=== PATIENT | female | born 1945 | race Asian ===

== ENCOUNTER 2019-07-16 11:54 | Emergency (ER) | payer MEDICARE, OTHER ==
[~2019-07-16] VITALS: Ht 149.9 cm; Wt 50.8 kg
[2019-07-16 13:21] VITALS: BP 126/98
[2019-07-16] MEDS ORDERED: ACETAMINOPHEN 325 MG TAB PO ONE (13:45)
== END 2019-07-16 14:09 | disposition home or self-care (01) ==
LOC: ER 11:54
DX: S16.1XXA Strain of muscle, fascia and tendon at neck level, initial encounter (principal); E11.9 Type 2 diabetes mellitus without complications; I10 Essential (primary) hypertension; Z88.0 Allergy status to penicillin; V43.62XA Car passenger injured in collision with other type car in traffic accident, initial encounter; Y93.89 Activity, other specified; Y92.488 Other paved roadways as the place of occurrence of the external cause; Y99.8 Other external cause status
CPT/HCPCS: 72040

== ENCOUNTER 2020-04-20 10:57 | Inpatient (IN) | payer OTHER ==
[~2020-04-20] VITALS: Ht 152.4 cm; Wt 49.6 kg
[2020-04-20] MEDS ORDERED: methylPREDNISolone SOD SUCC 125 MG/2 ML VL ONE (11:26)
[2020-04-20] MEDS ORDERED: methylPREDNISolone SOD SUCC 125 MG/2 ML VL IV ONE (11:30)
[2020-04-20 12:03] LABS: Basophils # (auto) 0 10 ^3/uL (0-0.2); Basophils % (auto) 0.1 % (0.0-2.0); Eosinophils # (auto) 0 10 ^3/uL (0-0.8); Hematocrit 39.1 % (36.0-46.0); Hemoglobin 12.9 g/dL (12.2-16.2); Lymphocytes # (auto) 1.7 10 ^3/uL (0.4-5.4); Lymphocytes % (auto) 13.1 % (10.0-50.0); Mean Corpuscular Hemoglobin 29.5 pg (28.0-32.0); Mean Corpuscular Volume 89.5 fL (80.0-100.0); Monocytes # (auto) 1.2 10 ^3/uL (0-1.3); Neutrophils # (auto) 10.2 10 ^3/uL (1.6-8.6); Neutrophils % (auto) 77.8 % (37.0-80.0); Nucleated Red Blood Cells % 0.7 %; Platelet Count (auto) 317 10^3/uL (140-450); Red Blood Cells 4.36 10^6/uL (4.0-5.20); Red Cell Distribution Width 14.5 % (11.8-14.3)
[2020-04-20 12:16] LABS: Lactic Acid w/Reflex 11.4 mmol/L (0.4-2.0)
[2020-04-20 12:58] LABS: INR 1.15 (0.9-1.15); Partial Thromboplastin Time 25.1 sec (23.0-31.2)
[2020-04-20 13:19] LABS: Urine Bacteria NONE SEEN /hpf (None Seen); Urine Blood 2+ /uL (Negative); Urine Hyaline Cast FEW /lpf (0 - 2); Urine Mucus FEW (None Seen); Urine Specific Gravity 1.021 (1.001-1.035); Urine WBC 1 /hpf (0 - 5)
[2020-04-20] MEDS ORDERED: cefTRIAXone 1GM/50ML D5W 50 ML IV ONE ×2 (14:52→15:00)
[2020-04-20] MEDS ORDERED: VANCOMYCIN 1GM/250ML 250 ML IV ONE ×2 (14:52→15:00)
[2020-04-20] MEDS ORDERED: SODIUM CHLORIDE 0.9% 1,650 ML IV ONE (15:00)
[2020-04-20] MEDS ORDERED: SODIUM CHLORIDE 0.9% 1,000 ML IV ONE (15:00)
[2020-04-20 16:22] LABS: Albumin 2.7 g/dL (3.4-5.0); Calcium 8.2 mg/dL (8.5-10.1); Magnesium 1.7 mg/dL (1.6-2.6); Potassium 3.1 mmol/L (3.5-5.1)
[2020-04-20 16:27] LABS: BUN/Creatinine Ratio 17.6; Bilirubin, Total 0.8 mg/dL (0.2-1.0); Total Protein 7.7 g/dL (6.4-8.2)
[2020-04-20] MEDS ORDERED: ASPirin 81 mg TAB PO ONE (17:00)
[2020-04-20] MEDS ORDERED: NITROGLYCERIN 0.4 MG SL TAB SL PRN (19:00)
[2020-04-20] MEDS ORDERED: MORPHINE SULF INJ 2 MG/ML SYRINGE 1ML IV PRN (19:00)
[2020-04-20 20:58] LABS: White Blood Cell 8.6 10^3/uL (4.4-10.8)
[2020-04-20 20:59] LABS: Hematocrit 35.4 % (36.0-46.0); Hemoglobin 11.5 g/dL (12.2-16.2); Mean Corpuscular Hemoglobin 28.5 pg (28.0-32.0); Mean Corpuscular Hgb Conc. 32.5 g/dL (32.0-36.0); Mean Corpuscular Volume 87.6 fL (80.0-100.0); Platelet Count (auto) 180 10^3/uL (140-450); Red Blood Cells 4.05 10^6/uL (4.0-5.20)
[2020-04-20 21:00] LABS: Band Neutrophils % (manual) 0; Basophils % (manual) 0 (0.0-2.0); Eosinophils % (manual) 0 (0-7); Metamyelocytes % 0; Myelocytes % 0; Promyelocytes % 0; Reactive Lymphocytes 0
[2020-04-20 21:01] LABS: Blast Cells 0
--- NOTE | 2020-04-20 21:05 | NUR ---
AT BEDSIDE IN ER BED 4. PER EDD CHURCH, NEW ORDERS RECEIVED BY MD BECKY ISBELL, TO ATTEMPT TO PLACE PT ON ANY O2 MODALITY ABLE TOLERATE SATS OF ABOVE 92%. PT PLACED ON 10LPM OXYMIZER POX 93% WILL TITRATE TOLERABLE. RN AWARE OF O2 CHANGE WILL CONTINUE TO MONITOR. WAS AT BEDSIDE IN FULL PPE DUE TO COVID ISOLATION PRECAUTIONS.
[2020-04-20] MEDS ORDERED: HEPARIN SODIUM (PORCINE) 5000 UNITS/ML 1ML VIAL IV ONE (21:30)
[2020-04-20 22:10] VITALS: BP 156/94
--- NOTE | 2020-04-20 22:10 | NUR ---
Telemetry admit from DELANEY MARADIAGA admitted to Telemetry unit. Patient oriented to MARIBEL ORTEGA, primary RN, unit, room, bed, call light, and unit policies regarding patient care and visiting hours. Patient now on continuous telemetry monitoring, tele box # 13. Patient is alert and oriented x4. Patient denies pain at this time. Patient reports shortness of breath with exertion. Patient is on 10L/min Oxymizer, SPO2: 94% at this time. No sign/symptoms of distress noted or verbalized at this time. Instructed on plan of care and encouraged patient to call for assistance as needed, patient verbalized understanding. Bed is locked in lowest position, side rails x 2 are up, and call light is within reach.
[2020-04-20 22:17] LABS: Lymphocytes % (manual) 7 (10.0-50.0); Monocytes % (manual) 8 (0-12)
[2020-04-20] MEDS: ASCORBIC ACID 500 MG TAB PO SCH (22:57)
[2020-04-20] MEDS: ACETAMINOPHEN 325 MG TAB PO PRN (22:57)
[2020-04-21] VITALS (19 sets, daily range): BP systolic 130–167; BP diastolic 78–102
--- NOTE | 2020-04-21 00:34 | NUR ---
Critical Lab Value Dr. Mary is covering for Dr. Perales. Dr. Mary made aware of patient's critical troponin lab value: 1.430. Dr. Mary aware that patient has an order for a heparin drip and heparin bolus. Dr. Mary also made aware of patient's blood pressure 158/95 and heart rate 92. Orders received for Lisinopril 40mg PO x1 now. Orders read back and verified. Will carry out orders as received.
[2020-04-21] MEDS ORDERED: LISINOPRIL 20 MG TAB PO ONE (00:45)
[2020-04-21] MEDS: HEPARIN DRIP/D5W 100UNITS/ML 250 ML IV SCH ×2 (00:48→00:50)
[2020-04-21] MEDS: HYDROcodone-ACET 5/325MG TAB PO PRN (01:00)
[2020-04-21] MEDS ORDERED: PANT40TA2 PO (02:03)
[2020-04-21] MEDS ORDERED: LOVA40TA72 PO (02:04)
[2020-04-21] MEDS ORDERED: CYAN-17 PO (02:04)
[2020-04-21] MEDS ORDERED: LISI-646 PO (02:04)
[2020-04-21] MEDS ORDERED: METF-929 PO (02:04)
[2020-04-21] MEDS ORDERED: ALLO100T PO (02:04)
--- NOTE | 2020-04-21 04:58 | NUR ---
AT BEDSIDE ATTEMPTED TO TITRATED TO 9LPM VIA OXYMIZER, POX 92-93%, RN MARIBEL COMMUNICATED ON O2 CHANGE.
--- NOTE | 2020-04-21 06:00 | NUR ---
HOME MEDICATIONS Home medications collected and placed in [place] [address] medication room. POM wristband placed on patient.
--- NOTE | 2020-04-21 07:21 | NUR ---
Called Lab RE: APTT Spoke with Pippa from lab regarding time sensitive APTT blood draw due at 07:00. Per pippa "I just received all the blood."
--- NOTE | 2020-04-21 07:50 | NUR ---
Shift change Patient desaturating on 11L Oxymizer. BP 153/97, HR 97, RR 24, O2 85% on 11 L Oxymizer. Call placed to Garth Michael and asked for recommendations. Recommendations made to put patient on simple mask. Patient placed on simple mask, oxygen levels increased to 96%, patient tolerating well and verbalized "feeling better". Verified rate of heparin drip with ALEXANDRE RN. Still awaiting PTT results to adjust rate. Patient remains of continuous heart and oxygen monitor. Will continue to monitor closely.
[2020-04-21 07:58] LABS: Basophils # (auto) 0 10 ^3/uL (0-0.2); Basophils % (auto) 0.2 % (0.0-2.0); Eosinophils # (auto) 0 10 ^3/uL (0-0.8); Hematocrit 35.7 % (36.0-46.0); Hemoglobin 11.4 g/dL (12.2-16.2); Lymphocytes # (auto) 0.9 10 ^3/uL (0.4-5.4); Lymphocytes % (auto) 10.4 % (10.0-50.0); Mean Corpuscular Hemoglobin 28.7 pg (28.0-32.0); Mean Corpuscular Hgb Conc. 32.1 g/dL (32.0-36.0); Mean Corpuscular Volume 89.3 fL (80.0-100.0); Monocytes # (auto) 1.2 10 ^3/uL (0-1.3); Monocytes % (auto) 13.9 % (0.0-12.0); Neutrophils # (auto) 6.4 10 ^3/uL (1.6-8.6); Neutrophils % (auto) 75.5 % (37.0-80.0); Nucleated Red Blood Cells % 0.6 %; Platelet Count (auto) 207 10^3/uL (140-450); Red Blood Cells 3.99 10^6/uL (4.0-5.20); Red Cell Distribution Width 14.2 % (11.8-14.3); White Blood Cell 8.5 10^3/uL (4.4-10.8)
[2020-04-21 08:23] LABS: INR 1.21 (0.9-1.15); Partial Thromboplastin Time 42.6 sec (23.0-31.2)
[2020-04-21 08:33] LABS: Potassium 3.2 mmol/L (3.5-5.1)
[2020-04-21 08:44] LABS: BUN/Creatinine Ratio 21.8; Calcium 8.7 mg/dL (8.5-10.1)
--- NOTE | 2020-04-21 08:44 | NUR ---
Spoke with Dr Greenwood and updated on patient status. Discussed oxygen levels, chest pain, medication and vital signs. EKG's fax to Doctor for review. Patient denies any chest pain at this time, resting comfortably in bed. In locked and lowest position, call light in reach.
[2020-04-21] MEDS ORDERED: CLOPIDOGREL 300 MG TAB PO ONE (08:45)
--- NOTE | 2020-04-21 08:49 | NUR ---
HEPARIN Received call from pharmacy ""[facility]". Instructed to increase dose rate r/t PTT results of 42.6. Heparin now infusing at 8.5ml per hour. Next PTT at 15:00.
[2020-04-21] MEDS ORDERED: POTASSIUM CHL 20 Meq TABLET PO ONE ×2 (09:15→15:00)
[2020-04-21] MEDS ORDERED: SPIRONOLACTONE 25 MG TAB PO ONE (09:15)
[2020-04-21] MEDS ORDERED: FUROSEMIDE 40 MG/4 ML VIAL IV ONE (09:15)
[2020-04-21] MEDS ORDERED: AZITHROMYCIN 500MG/ 250ML 250 ML IV SCH (10:00)
[2020-04-21] MEDS: ASCORBIC ACID 500 MG TAB PO SCH ×2 (10:00→22:00)
--- NOTE | 2020-04-21 10:00 | NUR ---
PULMONOLOGY Dr Lorne arreola for pulmonology consult, updated on patient.
[2020-04-21] MEDS: DexAMETHasone SOD PHOS 10MG/1ML VIAL INJ IV SCH (10:25)
[2020-04-21] MEDS: ASPirin 81 mg TAB PO SCH (10:26)
[2020-04-21] MEDS: NITROGLYCERIN 0.2MG/HR TOPICAL PATCH TD SCH (10:27)
[2020-04-21] MEDS: levoFLOXacin 500MG 100 ML IV SCH (10:27)
[2020-04-21] MEDS: ZINC SULFATE 220mg CAP or TAB PO SCH (10:27)
[2020-04-21] MEDS: LISINOPRIL 10 MG TAB PO SCH (10:27)
[2020-04-21] MEDS: CHOLECALCIFEROL (VITD3) 2,000 UNIT CAP PO SCH (10:27)
--- NOTE | 2020-04-21 12:36 | NUR ---
TRANSFER Patient continually desaturating, requiring 15 L via mask to maintain O2 at 93%. Patient unable to tolerate sitting on bedpan, voiding large amounts of urine after diuretics administered. R.T. paged to room. Patient placed in prone position, tolerating well. Oxygen levels rise and patient feels relief in prone position. 16 F urinary catheter placed after one attempt, patient tolerated well. Patient remains on continuous tele monitor and oxygen monitor.
--- NOTE | 2020-04-21 12:45 | NUR ---
CXR COMPLETED AT BEDSIDE. CALL PLACED TO DOCTOR ISMAL TO MAKE RECOMMENDATIONS FOR CHEST CT.
--- NOTE | 2020-04-21 13:30 | NUR ---
SPOKE TO Garth FRANCIS - STATES PATIENT NOT STABLE FOR TRANSFER TO [facility] DEPT FOR CT CHEST PATIENT UNABLE TO LIE FLAT DUE TO SOB.
--- NOTE | 2020-04-21 13:45 | NUR ---
ROUNDS Oxygen levels maintaining 95% or greater after proning position.
--- NOTE | 2020-04-21 13:52 | NUR ---
REPORT RECEIVED FROM BARRY PUGA FROM [facility] [employer]. PATIENT TO GO TO ROOM 112 WHEN BED IS READY.
[2020-04-21] MEDS ORDERED: DEXTROSE (50%) 50ML SYRG IV PRN (14:00)
[2020-04-21] MEDS ORDERED: ONDANSETRON HCL 4 MG/2 ML VIAL IV PRN (14:00)
--- NOTE | 2020-04-21 14:15 | NUR ---
Report called to Sol PUGA in ICU. Bed not ready at this time. Will transfer once bed ready.
[2020-04-21 15:16] LABS: INR 1.22 (0.9-1.15); Partial Thromboplastin Time 43.3 sec (23.0-31.2)
--- NOTE | 2020-04-21 15:43 | NUR ---
HEPARIN Spoke with pharmacist, PTT 43.3 order to increase rate by 2ml/hr, now infusing at 10.5ml/hr. Next PTT at 21:30.
--- NOTE | 2020-04-21 15:50 | NUR ---
Respiratory note: CALLED 'S OFFICE TO CONSULT ABOUT PUTTING PT ON HIGH FLOW NASAL CANNULA. NOT REACH BUT WILL BE PAGED.
--- NOTE | 2020-04-21 16:00 | NUR ---
PATIENT TRANSFER PATIENT ARRIVED TO ICU VIA BED CONNECTED TO TELEMETRY BOX AND OXYGEN. PATIENT CURRENTLY ON 15L NONREBREATHER SATURATIONS 100%. PATIENT IS ANXIOUS AND RESTLESS. MORALES DRAINING CLEAR YELLOW URINE BUT IS LEAKING, WILL ADJUST AND REASSESS. PATIENT PLACED ON BEDSIDE MONITOR. CALL LIGHT IN REACH, BED IN LOW POSITION. WILL CONTINUE TO MONITOR RESPIRATORY STATUS. PATIENT INSTRUCTED TO CALL FOR ASSISTANCE WHEN NEEDED.
[2020-04-21] MEDS ORDERED: REMDESIVIR 200 MG in NS 210ml LOADING DOSE ADULT IV ONE (17:00)
[2020-04-21] MEDS: ACCU-CHEK COMFORT CURVE STRIP VI SCH ×2 (17:06→22:00)
[2020-04-21] MEDS: InsuLIN REG 1unit/0.01ml Soln (100units/ml) SC SCH ×2 (17:07→22:00)
--- NOTE | 2020-04-21 17:30 | NUR ---
PATIENT PLACED ON 10L OXYMIZER, SATURATIONS 93-94%. WILL CONTINUE TO MONITOR.
--- NOTE | 2020-04-21 18:25 | NUR ---
SPOKE TO DR PENA TO IN FORM OF PATIENT BEING VERY ANXIOUS. PER MD START PATIENT ON ATIVAN IVP 0.5MG Q6PRN. ALL ORDERS NOTED IN CHART.
--- NOTE | 2020-04-21 18:30 | NUR ---
PICC LINE NURSE AT BEDSIDE TO PLACE MIDLINE
--- NOTE | 2020-04-21 18:34 | NUR ---
PT CURRENTLY WEARING A 12L OXYMIZER. SPO2 90%, HR 92, RR 17. BIPAP AT BEDSIDE. NO RESPIRATORY DISTRESS NOTED. WILL CONTINUE TO MONITOR PT.
[2020-04-21] MEDS: LORazepam 2MG/ML-1ML VIAL IV PRN (19:00)
--- NOTE | 2020-04-21 19:19 | NUR ---
Midline Placement: Patient educated on need for midline placement. All risks and benefits explained and all questions and concerns addresses prior to procedure. 4Fr 20cm midline inserted via left basilic vein using Ultrasound. Sterile technique utilized. Blood return obtained from th single lumen and flushed easily with NS using proper technique. Midline secured with saline lock; biodisc and occlusive dressing applied. Primary RN notified. Midline lot #[id number]. internal length 20cm external length 0cm
--- NOTE | 2020-04-21 20:00 | NUR ---
PATIENT ADMITTED ON 04/20/2020. PROGRESSIVE DYSPNEA AND COUGH FOR 4 WEEKS. MD DIAGNOSIS: COVID PNA AND NSTEMI. LAST TROPONIN WAS 2.04. DENIES CHEST PAIN, NAUSEA, DYSPNEA OR DIAPHORESIS. GONZALEZ WELL. LUNGS CLEAR. ON 10L OXYMIZER. ALL PULSES PALPABLE. ABDOMEN ROUND AND SOFT. HAS 2 PERIPHERAL IVS AND A DELFINO MIDLINE THAT WAS JUST PLACED. PATIENT ARRIVED HERE FROM THE COVID UNIT THIS AFTERNOON. HEPARIN DRIP AT 1050 UNITS/HOUR. MORALES IN PLACE DRAINING CLEAR YELLOW LIQUID TO DOWN DRAIN BAG. ORDER FOR CT OF THE CHEST. NO SKIN ISSUES. DIET: CARDIAC DIET. NO APPETITE.
--- NOTE | 2020-04-21 20:15 | NUR ---
LOOKED IN THE ROOM AND SAW A BLOODY PILLOW CASE. ENTERING THE ROOM, THE NEW MIDLINE WAS SECURE, BUT IT HAD BLED FROM THE INSERTION SITE. REMOVED THE OLD DRESSING AND STABILIZATION DEVICE. CLEANED SITE AND APPLIED NEW STABILIZATION DEVICE AND DRESSING. TOOK 30 MINUTES TO CLEAN AND DRESS. BLOOD WAS EVERYWHERE.
--- NOTE | 2020-04-21 20:48 | NUR ---
PTPTT AND POTASSIUM SENT.
--- NOTE | 2020-04-21 20:49 | NUR ---
PULSE OX ON BEDSIDE MONITOR NOT WORKING. TRYING TO LOCATE A NEW CABLE. PORTABLE PULSE OX MACHINE DELIVERED FROM RT DEPARTMENT. PLACED IT IN ROOM AND ATTACHED IT TO PATIENT PROBE. CURRENTLY 100% SATURATION.
[2020-04-21 21:26] LABS: INR 1.28 (0.9-1.15); Partial Thromboplastin Time 60.9 sec (23.0-31.2)
[2020-04-21] MEDS: INSULIN LANTUS (GLARGINE) 1 /0.01ml (100units/ml) SC SCH (22:00)
--- NOTE | 2020-04-21 22:00 | NUR ---
NEW MIDLINE SITE HAS OOZED A LITTLE BLOOD. PATIENT IS RESTING.
--- NOTE | 2020-04-21 23:31 | NUR ---
WAKES UP READILY. MIDLINE SITE HAS SOME MORE OOZING. PRESSURE DRESSING APPLIED.
[2020-04-22] VITALS (17 sets, daily range): BP systolic 126–174; BP diastolic 73–102
--- NOTE | 2020-04-22 | NUR ---
COMPLETE LINEN CHANGE
[2020-04-22] MEDS: LORazepam 2MG/ML-1ML VIAL IV PRN ×4 (00:30→20:48)
--- NOTE | 2020-04-22 00:30 | NUR ---
VSS . NSR WITHOUT ECTOPY. 10 L OXYMIZER. NO DYSPNEA. ANXIOUS. ATIVAN GIVEN. DOES NOT LIKE MORALES. HAD A BLADDER SPASM AND LEAKED A LITTLE URINE ONTO THE PAD. COMPLETE LINEN CHANGE AND HORTENCIA CARE. O2 SAT 97%.
[2020-04-22 03:30] LABS: INR 1.26 (0.9-1.15)
[2020-04-22 03:33] LABS: Partial Thromboplastin Time 74.8 sec (23.0-31.2)
[2020-04-22] MEDS: HYDROcodone-ACET 5/325MG TAB PO PRN ×2 (04:22→22:31)
--- NOTE | 2020-04-22 05:00 | NUR ---
AM LABS SENT.
[2020-04-22 05:19] LABS: Basophils # (auto) 0 10 ^3/uL (0-0.2); Basophils % (auto) 0.1 % (0.0-2.0); Eosinophils # (auto) 0 10 ^3/uL (0-0.8); Hematocrit 34.6 % (36.0-46.0); Hemoglobin 11.3 g/dL (12.2-16.2); Lymphocytes # (auto) 1.1 10 ^3/uL (0.4-5.4); Lymphocytes % (auto) 11.3 % (10.0-50.0); Mean Corpuscular Hemoglobin 28.8 pg (28.0-32.0); Mean Corpuscular Hgb Conc. 32.6 g/dL (32.0-36.0); Mean Corpuscular Volume 88.6 fL (80.0-100.0); Monocytes # (auto) 1.2 10 ^3/uL (0-1.3); Monocytes % (auto) 12.1 % (0.0-12.0); Neutrophils # (auto) 7.7 10 ^3/uL (1.6-8.6); Neutrophils % (auto) 76.5 % (37.0-80.0); Nucleated Red Blood Cells % 0.1 %; Platelet Count (auto) 234 10^3/uL (140-450); Red Cell Distribution Width 14.3 % (11.8-14.3); White Blood Cell 10.1 10^3/uL (4.4-10.8)
--- NOTE | 2020-04-22 05:22 | NUR ---
REPOSITIONED. DESATURATED. NRB ON BRIEFLY. SWITCHED BACK TO OXYMIZER 10L.
[2020-04-22 05:35] LABS: Albumin 2.7 g/dL (3.4-5.0); BUN/Creatinine Ratio 28.2; Calcium 8.5 mg/dL (8.5-10.1); Potassium 3.4 mmol/L (3.5-5.1)
[2020-04-22 05:38] LABS: Bilirubin, Total 0.6 mg/dL (0.2-1.0); Total Protein 7.3 g/dL (6.4-8.2)
[2020-04-22] MEDS: InsuLIN REG 1unit/0.01ml Soln (100units/ml) SC SCH ×4 (06:45→22:00)
[2020-04-22] MEDS: ACCU-CHEK COMFORT CURVE STRIP VI SCH ×4 (06:46→22:07)
[2020-04-22] MEDS: CLOPIDOGREL BISULFATE 75 MG TAB PO SCH (07:29)
--- NOTE | 2020-04-22 08:50 | NUR ---
OXYGENATION INCREASED O2 ON OXYMIZER TO 15L, R.T. NOTIFIED. CONTINUE CARE. SATS DECREASED DOWN TO 84% WITH EXERTION.
--- NOTE | 2020-04-22 09:00 | NUR ---
FAMILY CALLED PASSWORD VERIFIED. UPDATED FAMILY ON PT'S CURRENT STATUS AND POC FOR TODAY. CONTINUE CARE.
[2020-04-22] MEDS: ZINC SULFATE 220mg CAP or TAB PO SCH (10:02)
[2020-04-22] MEDS: DexAMETHasone SOD PHOS 10MG/1ML VIAL INJ IV SCH (10:02)
[2020-04-22] MEDS: ASCORBIC ACID 500 MG TAB PO SCH ×2 (10:02→22:07)
[2020-04-22] MEDS: CHOLECALCIFEROL (VITD3) 2,000 UNIT CAP PO SCH (10:02)
[2020-04-22] MEDS: levoFLOXacin 500MG 100 ML IV SCH (10:02)
[2020-04-22] MEDS: ASPirin 81 mg TAB PO SCH (10:02)
[2020-04-22] MEDS: LISINOPRIL 10 MG TAB PO SCH (10:03)
[2020-04-22] MEDS: NITROGLYCERIN 0.2MG/HR TOPICAL PATCH TD SCH (10:03)
[2020-04-22 10:35] LABS: INR 1.24 (0.9-1.15)
[2020-04-22 10:42] LABS: Partial Thromboplastin Time 84.1 sec (23.0-31.2)
--- NOTE | 2020-04-22 10:45 | NUR ---
DR. PENA AT BEDSIDE: HEAVEN STATUS MD UPDATED ON PT'S CURRENT STATUS, LABS AND POC FOR TODAY. INFORMED MD THAT PATIENT IS CURRENTLY ON 15L OXYMIZER AT THIS TIME. INFORMED MD THAT WITH RESTLESSNESS AND EXERTION FROM PATIENT, SATS DECREASED DOWN TO 84%. HOLD CT FOR TODAY AT THIS TIME. ATTEMPT TOMORROW. MD WANTING TO KEEP PATIENT HEAVEN STATUS AT THIS TIME DUE TO POOR RESPIRATORY STATUS. CONTINUE CARE. WILL CARRIED OUT OTHER ORDERS GIVEN.
--- NOTE | 2020-04-22 10:55 | NUR ---
HEPARIN GTT TITRATE PER PROTOCOL. CURRENT PTT LEVEL IS 84.1. DECREASE HEPARIN GTT TO 850 UNITS/HR, OR 8.5 ML/HR. WILL CONTINUE TO MONITOR. PLAVIX HELD FOR TODAY.
[2020-04-22] MEDS: ALPRAZolam 0.25 MG TAB PO PRN (12:39)
[2020-04-22] MEDS: REMDESIVIR 100mg in NS 230ml DAILYx4DAYS (NO VENT) IV SCH (17:11)
[2020-04-22 17:52] LABS: INR 1.54 (0.9-1.15)
[2020-04-22 18:07] LABS: Partial Thromboplastin Time 76.2 sec (23.0-31.2)
--- NOTE | 2020-04-22 18:10 | NUR ---
HEPARIN GTT DECREASED PER PROTOCOL. CURRENT PTT 76.2. DECREASED HEPARIN GTT PER PROTOCOL TO 650 UNITS/HR, 6.5 ML/HR. WILL CONTINUE TO MONITOR.
[2020-04-22] MEDS: HEPARIN DRIP/D5W 100UNITS/ML 250 ML IV SCH (20:00)
--- NOTE | 2020-04-22 20:10 | NUR ---
TOOK OXYGEN OFF. ENTERED ROOM. SHE IS ORIENTED AND HAS OXYMIZER IN HANDS TURNING IT TO TRY AND FIGURE OUT HOW TO PUT IT BACK ON.TSERING. DYSPNIC. O2 SAT DROPPED TO 82%. REPOSITIONED TO LEFT. PULLED UP IN BED. FINISHED HER PUDDING. OFFERED HER SOME WATER. ABDOMEN SOFT. NO NAUSEA. GONZALEZ INDEPENDENTLY. LEFT ARM MIDLINE HAS OOZED FROM THE SITE. ALL PULSES PALPABLE. TEMP NORMAL. NSR 70S. NO ECTOPY. BP NORMAL.
--- NOTE | 2020-04-22 21:00 | NUR ---
TOOK HER OXYGEN OFF AGAIN. O2 SAT DROPPED TO 54%. SHE KEEPS TALKING AND MOVING DURING THE DESATURATION. PLACED IT BACK ON THE PATIENT. DID SOME EDUCATION ON THE IMPORTANCE OF HER OXYGEN DELIVERY. MIDLINE DRESSING CHANGED. SITE IS STILL OOZING BLOOD A LITTLE . SNOW AT SITE WITH BIOPATCH. BEFORE LEAVING THE ROOM, I ADMINISTERED ATIVAN.
[2020-04-22] MEDS: INSULIN LANTUS (GLARGINE) 1 /0.01ml (100units/ml) SC SCH (22:00)
--- NOTE | 2020-04-22 22:00 | NUR ---
PATIENT IS RESTING. NSR IN THE 90S. PATIENT HAS OXYGEN OFF AGAIN
--- NOTE | 2020-04-22 22:10 | NUR ---
PATIENT PULLED OXYMIZER OFF AGAIN. STATED THAT SHE DOES NOT KNOW WHAT SHE IS DOING. PLACED OXYGEN BACK ON. HOB ELEVATED. HAD HER COUGH. COARSE, NONPRODUCTIVE COUGH. NSR IN THE 90S WHEN HER OXYGEN IS OFF, WHEN IT IS ON, THE HEART RATE IS IN THE 70S. MIDLINE DRESSING CLEAN AN DRY.
--- NOTE | 2020-04-22 23:00 | NUR ---
COMPLAINING OF PAIN WITH HER MORALES. NORCO GIVEN.
[2020-04-23] VITALS (23 sets, daily range): BP systolic 113–184; BP diastolic 75–103
--- NOTE | 2020-04-23 00:30 | NUR ---
INCREASED THE HEPARIN DRIP TO 850 UNITS PER HOUR.
[2020-04-23 00:48] LABS: INR 1.24 (0.9-1.15); Partial Thromboplastin Time 37.6 sec (23.0-31.2)
--- NOTE | 2020-04-23 05:30 | NUR ---
LABS DONE. PTPTT DONE
[2020-04-23] MEDS: ACCU-CHEK COMFORT CURVE STRIP VI SCH ×4 (06:45→22:29)
--- NOTE | 2020-04-23 06:50 | NUR ---
KEEPS CALLING FOR FOOD.
--- NOTE | 2020-04-23 06:51 | NUR ---
SBP HIGH. LISINOPRIL GIVEN EARLY
[2020-04-23] MEDS: LISINOPRIL 10 MG TAB PO SCH (06:52)
[2020-04-23] MEDS: InsuLIN REG 1unit/0.01ml Soln (100units/ml) SC SCH ×4 (07:00→22:26)
--- NOTE | 2020-04-23 07:05 | NUR ---
ACCUCHECK 55. ONE AMP OF D50 GIVEN
[2020-04-23 07:12] LABS: Basophils # (auto) 0 10 ^3/uL (0-0.2); Basophils % (auto) 0.1 % (0.0-2.0); Eosinophils # (auto) 0 10 ^3/uL (0-0.8); Hematocrit 35.2 % (36.0-46.0); Hemoglobin 11.2 g/dL (12.2-16.2); Lymphocytes # (auto) 1.2 10 ^3/uL (0.4-5.4); Lymphocytes % (auto) 15.4 % (10.0-50.0); Mean Corpuscular Hemoglobin 28.3 pg (28.0-32.0); Mean Corpuscular Hgb Conc. 31.7 g/dL (32.0-36.0); Mean Corpuscular Volume 89.5 fL (80.0-100.0); Monocytes # (auto) 1.1 10 ^3/uL (0-1.3); Neutrophils # (auto) 5.5 10 ^3/uL (1.6-8.6); Neutrophils % (auto) 70.5 % (37.0-80.0); Nucleated Red Blood Cells % 0.1 %; Platelet Count (auto) 258 10^3/uL (140-450); Red Blood Cells 3.94 10^6/uL (4.0-5.20); Red Cell Distribution Width 14.1 % (11.8-14.3); White Blood Cell 7.8 10^3/uL (4.4-10.8)
[2020-04-23 07:15] LABS: Calcium 7.4 mg/dL (8.5-10.1); Potassium 3.2 mmol/L (3.5-5.1)
--- NOTE | 2020-04-23 07:15 | NUR ---
Assumed care of pt., report received per EDD Ballesteros. No distress noted, pt. attached to monitor and reading sinus rhythm, VSS, will cont.to monitor for any changes, call valles in reach, assessment ongoing.
[2020-04-23 07:19] LABS: Albumin 2.4 g/dL (3.4-5.0); BUN/Creatinine Ratio 32.3
[2020-04-23 07:22] LABS: Bilirubin, Total 0.5 mg/dL (0.2-1.0); Total Protein 6.6 g/dL (6.4-8.2)
[2020-04-23 08:19] LABS: INR 1.24 (0.9-1.15); Partial Thromboplastin Time 42.7 sec (23.0-31.2)
[2020-04-23] MEDS: LORazepam 2MG/ML-1ML VIAL IV PRN (10:02)
[2020-04-23] MEDS: DexAMETHasone SOD PHOS 10MG/1ML VIAL INJ IV SCH (10:03)
[2020-04-23] MEDS: ASCORBIC ACID 500 MG TAB PO SCH ×2 (10:03→22:29)
[2020-04-23] MEDS: CHOLECALCIFEROL (VITD3) 2,000 UNIT CAP PO SCH (10:03)
[2020-04-23] MEDS: ZINC SULFATE 220mg CAP or TAB PO SCH (10:03)
[2020-04-23] MEDS: ASPirin 81 mg TAB PO SCH (10:04)
[2020-04-23] MEDS: levoFLOXacin 500MG 100 ML IV SCH (10:04)
[2020-04-23] MEDS: NITROGLYCERIN 0.2MG/HR TOPICAL PATCH TD SCH (10:04)
[2020-04-23] MEDS: CLOPIDOGREL BISULFATE 75 MG TAB PO SCH (10:05)
--- NOTE | 2020-04-23 11:07 | NUR ---
Nutrition Assessment Notes Refer to link for further details. Est energy needs BW 54 [id number] kcals (25-30 kcals/kgBW), Est protein needs:54-64 gms/day (1.0-1.2gm/kgBW). Will reassess prn Addendum: 04/23/20 at [address] Amended: Links added.
[2020-04-23] MEDS: REMDESIVIR 100mg in NS 230ml DAILYx4DAYS (NO VENT) IV SCH (17:15)
--- NOTE | 2020-04-23 19:05 | NUR ---
No distress noted, pt. report given to EDD Ballesteros. Care of pt assumed per NOC RN, day shift RN relinquished care and signed off.
--- NOTE | 2020-04-23 19:35 | NUR ---
PATIENT IS SITTING UP IN BED EATING
--- NOTE | 2020-04-23 19:36 | NUR ---
ADMITTED ON 04/20/20. CAME TO US FROM THE COVID UNIT. DIAGNOSIS : COVID PNA AND NSTEMI. ON A HEPARIN DRIP. NEW ON 850 UNITS/HR. NEXT PTT AT 0100 A TIMED LAB DRAW. RECEIVED HER REMDESIVIR TODAY. LASIX TODAY. MORALES IN PLACE DRAINING CLEAR YELLOW LIQUID TO DOWN DRAIN BAG. PENDING ECHOCARDIOGRAM. DUPLEX OF LOWER EXTREMITIES DONE TODAY .RESULTS NEGATIVE. TXM FOR CONVALESCENT PLASMA. NSR WITHOUT ECTOPY. REMAINS ON OXYMIZER 13L
[2020-04-23] MEDS: HEPARIN DRIP/D5W 100UNITS/ML 250 ML IV SCH (20:00)
--- NOTE | 2020-04-23 20:30 | NUR ---
PATIENT ATE 90% OF MEAL. SITTING UPRIGHT, ASLEEP. TV ON. LUNGS CLEAR. MORALES TO DOWN DRAIN BAG. ONE IV: MIDLINE DELFINO. HEPARIN DRIP AT 850 UNITS/HR. FOUND OXYMIZER ON AT 8L. O2 SAT 100%. TURNED THE OXYMIZER DOWN TO 6. O2 SAT 15 MINUTES LATER: 98% NSR IN THE 80S. SBP STABLE. NO FEVER.
--- NOTE | 2020-04-23 22:00 | NUR ---
O2 SATURATION 98%. TURNED THE OXYMIZER TO 4L. O2 SAT WENT DOWN TO 94%.
[2020-04-23] MEDS: INSULIN LANTUS (GLARGINE) 1 /0.01ml (100units/ml) SC SCH (22:28)
--- NOTE | 2020-04-23 22:30 | NUR ---
STILL SLEEPING. NOT DISTURBING HER ANYMORE THAN NECESSARY. WHEN SHE SLEEPS, SHE SATURATES THE BEST. OXYMIZER STILL 4L. O2 SAT 94%. RR 20.
--- NOTE | 2020-04-23 23:05 | NUR ---
CONVALESCENT PLASMA IN HOUSE. CALLED TO HAVE IT PREPARED.
[2020-04-24] VITALS (28 sets, daily range): BP systolic 121–192; BP diastolic 68–104
--- NOTE | 2020-04-24 00:20 | NUR ---
CONVALESCENT PLASMA STARTED
--- NOTE | 2020-04-24 01:25 | NUR ---
PTPTT DRAWN. CONVALESCENT PLASMA COMPLETED
[2020-04-24 02:19] LABS: Basophils # (auto) 0 10 ^3/uL (0-0.2); Basophils % (auto) 0.1 % (0.0-2.0); Eosinophils # (auto) 0 10 ^3/uL (0-0.8); Eosinophils % (auto) 0.1 % (0.0-7.0); Hematocrit 33.2 % (36.0-46.0); Lymphocytes # (auto) 1.2 10 ^3/uL (0.4-5.4); Lymphocytes % (auto) 13.3 % (10.0-50.0); Mean Corpuscular Hemoglobin 29.4 pg (28.0-32.0); Mean Corpuscular Hgb Conc. 33.1 g/dL (32.0-36.0); Mean Corpuscular Volume 88.8 fL (80.0-100.0); Monocytes # (auto) 1.1 10 ^3/uL (0-1.3); Monocytes % (auto) 11.8 % (0.0-12.0); Neutrophils # (auto) 6.8 10 ^3/uL (1.6-8.6); Neutrophils % (auto) 74.7 % (37.0-80.0); Nucleated Red Blood Cells % 0.2 %; Platelet Count (auto) 255 10^3/uL (140-450); Red Blood Cells 3.74 10^6/uL (4.0-5.20); Red Cell Distribution Width 14.5 % (11.8-14.3); White Blood Cell 9.1 10^3/uL (4.4-10.8)
[2020-04-24 02:33] LABS: INR 1.18 (0.9-1.15); Partial Thromboplastin Time 41.4 sec (23.0-31.2)
[2020-04-24 02:43] LABS: Albumin 2.7 g/dL (3.4-5.0); BUN/Creatinine Ratio 23.9; Calcium 8.5 mg/dL (8.5-10.1); Potassium 3.6 mmol/L (3.5-5.1)
[2020-04-24 02:46] LABS: Bilirubin, Total 0.5 mg/dL (0.2-1.0); Total Protein 6.8 g/dL (6.4-8.2)
--- NOTE | 2020-04-24 02:50 | NUR ---
PT TAKEN OFF OXYMIZER AND PLACED ON 4L NASAL CANNULA. SP02 HOLDING BETWEEN 94-96%.
--- NOTE | 2020-04-24 03:00 | NUR ---
PLACED ON 4LNP. O2 SAT 96-97%
--- NOTE | 2020-04-24 03:24 | NUR ---
POSTPONING AM LABS TILL 729. THAT IS WHEN THE NEXT PTPTT IS DUE
--- NOTE | 2020-04-24 04:00 | NUR ---
VSS. DOING WELL ON 4LNP. O2 SAT 96-97%
[2020-04-24] MEDS: LISINOPRIL 10 MG TAB PO SCH (06:00)
--- NOTE | 2020-04-24 06:00 | NUR ---
LIGHT ON. PATIENT STATES SHE IS HUNGRY. BLOOD SUGAR 91
--- NOTE | 2020-04-24 06:35 | NUR ---
PT ON 4L NC WITH SP02 98%, HR 78, BP 170/94, RR 18
[2020-04-24] MEDS: InsuLIN REG 1unit/0.01ml Soln (100units/ml) SC SCH ×4 (07:00→21:51)
[2020-04-24] MEDS: ACCU-CHEK COMFORT CURVE STRIP VI SCH ×4 (07:16→21:47)
--- NOTE | 2020-04-24 09:00 | NUR ---
Nutrition Patient ate 100% of pureed diet with thin liquids without difficulty.
--- NOTE | 2020-04-24 10:05 | NUR ---
PTT PENDING FOR TITRATION PROTOCOL.
--- NOTE | 2020-04-24 10:05 | NUR ---
Family updated on pt status Family of DELANEY LEONG updated on patient's status and condition. All questions and concerns addressed. Gin Tran verbalized understanding.
[2020-04-24] MEDS: DexAMETHasone SOD PHOS 10MG/1ML VIAL INJ IV SCH (10:28)
[2020-04-24] MEDS: levoFLOXacin 500MG 100 ML IV SCH (10:28)
[2020-04-24] MEDS: CHOLECALCIFEROL (VITD3) 2,000 UNIT CAP PO SCH (10:28)
[2020-04-24] MEDS: ASPirin 81 mg TAB PO SCH (10:28)
[2020-04-24] MEDS: ASCORBIC ACID 500 MG TAB PO SCH ×2 (10:28→21:46)
[2020-04-24] MEDS: CLOPIDOGREL BISULFATE 75 MG TAB PO SCH (10:28)
[2020-04-24] MEDS: ZINC SULFATE 220mg CAP or TAB PO SCH (10:28)
[2020-04-24] MEDS: NITROGLYCERIN 0.2MG/HR TOPICAL PATCH TD SCH (10:29)
[2020-04-24 10:41] LABS: INR 1.18 (0.9-1.15); Partial Thromboplastin Time 63.3 sec (23.0-31.2)
[2020-04-24] MEDS ORDERED: IOHEXOL 350 MG/ML 100ML IJ ONE (10:41)
[2020-04-24] MEDS: LORazepam 2MG/ML-1ML VIAL IV PRN ×2 (11:30→23:28)
--- NOTE | 2020-04-24 11:45 | NUR ---
CT ANGIO Patient taken to ct angio, portable monitor and portable o2 in place. Patient tolerated transport well.
--- NOTE | 2020-04-24 12:17 | NUR ---
Ring Facer rounds Dr. Sheets aware of dc of heparin per Hospitalist. New order in place.
--- NOTE | 2020-04-24 13:49 | NUR ---
CRITICAL CT ANGIO MD PAGED TO NOTIFY. STATING HE IS IN HOSPITAL AND WILL MAKE ROUNDS SHORTLY. NO NEW ORDERS AT THIS TIME.
[2020-04-24] MEDS ORDERED: hydrALAZINE HCL 20 MG/ML VL IV PRN (14:30)
[2020-04-24] MEDS ORDERED: ENOXAPARIN SOD 40 MG/0.4 ML SYRINGE SC SCH (14:30)
[2020-04-24] MEDS ORDERED: LACTULOSE 20Gm/30ML SOLN PO PRN (14:30)
--- NOTE | 2020-04-24 16:00 | NUR ---
ECHO FOLLOW DR. CARDONA REQUESTING ECHO TO BE COMPLETED. BUSINESS DEVELOPMENT ASSISTANT CONTACTED TO NOTIFY MDS REQUEST. PER BUSINESS DEVELOPMENT ASSISTANT , ECHOS ARE ONLY DONE IF ORDERED BY RADIOSONDE SPECIALIST. DR. WARNER PAGED AND NOTIFIED OF MD'S REQUEST. CALLED BACK AND STATING HE IS OUT OF TOWN AND CONSULT TO BE PLACED FOR DR. POLANCO IN A.M. FOR FURTHER ORDERS.
[2020-04-24] MEDS: REMDESIVIR 100mg in NS 230ml DAILYx4DAYS (NO VENT) IV SCH (16:10)
[2020-04-24] MEDS: ALPRAZolam 0.25 MG TAB PO PRN (20:10)
[2020-04-24] MEDS: METOPROLOL TARTRATE 25 MG TAB PO SCH (20:57)
[2020-04-24] MEDS: INSULIN LANTUS (GLARGINE) 1 /0.01ml (100units/ml) SC SCH (21:46)
[2020-04-24] MEDS: ATORVASTATIN 20 MG TAB PO SCH (21:46)
[2020-04-24] MEDS ORDERED: ENOXAPARIN SOD 100 MG/1 ML SYRINGE SC SCH (22:00)
[2020-04-25] VITALS (14 sets, daily range): BP systolic 105–160; BP diastolic 65–94
[2020-04-25 05:01] LABS: Basophils # (auto) 0 10 ^3/uL (0-0.2); Basophils % (auto) 0.2 % (0.0-2.0); Eosinophils # (auto) 0 10 ^3/uL (0-0.8); Eosinophils % (auto) 0.4 % (0.0-7.0); Hematocrit 32.7 % (36.0-46.0); Hemoglobin 10.6 g/dL (12.2-16.2); Lymphocytes # (auto) 1.7 10 ^3/uL (0.4-5.4); Lymphocytes % (auto) 19.2 % (10.0-50.0); Mean Corpuscular Hgb Conc. 32.3 g/dL (32.0-36.0); Mean Corpuscular Volume 89.7 fL (80.0-100.0); Monocytes % (auto) 10.7 % (0.0-12.0); Neutrophils # (auto) 6.2 10 ^3/uL (1.6-8.6); Neutrophils % (auto) 69.5 % (37.0-80.0); Nucleated Red Blood Cells % 0.1 %; Platelet Count (auto) 257 10^3/uL (140-450); Red Blood Cells 3.65 10^6/uL (4.0-5.20); Red Cell Distribution Width 14.4 % (11.8-14.3); White Blood Cell 8.9 10^3/uL (4.4-10.8)
[2020-04-25 05:29] LABS: Potassium 3.7 mmol/L (3.5-5.1)
[2020-04-25 05:33] LABS: Albumin 2.7 g/dL (3.4-5.0); BUN/Creatinine Ratio 28.4; Calcium 8.6 mg/dL (8.5-10.1)
[2020-04-25 05:35] LABS: Bilirubin, Total 0.6 mg/dL (0.2-1.0); Total Protein 6.8 g/dL (6.4-8.2)
[2020-04-25] MEDS: ACCU-CHEK COMFORT CURVE STRIP VI SCH ×4 (06:34→22:20)
[2020-04-25] MEDS: InsuLIN REG 1unit/0.01ml Soln (100units/ml) SC SCH ×4 (06:34→22:20)
--- NOTE | 2020-04-25 07:00 | NUR ---
Opening note Assumed care of patient at this time. Report received from ALEXANDRE RN. POC reviewed, head to toe assessment complete, see intervention spreadsheet for complete details. Received patient alert and oriented, able to express needs and use call light. Received pt on 6lts NC. VSS. Huang catheter draining to gravity. IV site benign. Pt on Isolation for Covid19. Bed locked and in lowest position, safety precautions in place. Will monitor patient carefully.
[2020-04-25] MEDS: LISINOPRIL 10 MG TAB PO SCH (10:00)
[2020-04-25] MEDS ORDERED: ENOXAPARIN SOD 40 MG/0.4 ML SYRINGE SC SCH (10:00)
[2020-04-25] MEDS: METOPROLOL TARTRATE 25 MG TAB PO SCH ×2 (10:00→22:17)
[2020-04-25] MEDS: CHOLECALCIFEROL (VITD3) 2,000 UNIT CAP PO SCH (10:10)
[2020-04-25] MEDS: ASPirin 81 mg TAB PO SCH (10:10)
[2020-04-25] MEDS: DexAMETHasone SOD PHOS 10MG/1ML VIAL INJ IV SCH (10:10)
[2020-04-25] MEDS: ZINC SULFATE 220mg CAP or TAB PO SCH (10:10)
[2020-04-25] MEDS: CLOPIDOGREL BISULFATE 75 MG TAB PO SCH (10:11)
[2020-04-25] MEDS: ASCORBIC ACID 500 MG TAB PO SCH ×2 (10:11→22:19)
[2020-04-25] MEDS: levoFLOXacin 500MG 100 ML IV SCH (10:11)
[2020-04-25] MEDS: NITROGLYCERIN 0.2MG/HR TOPICAL PATCH TD SCH (10:12)
[2020-04-25] MEDS ORDERED: ENOXAPARIN SOD 120 MG/0.8 ML SYRINGE SC SCH (10:16)
[2020-04-25] MEDS ORDERED: MILK OF MAGNESIA 30ML SUSP PO ONE (12:00)
--- NOTE | 2020-04-25 12:50 | NUR ---
Faxed Home O2 at 3L continuous and [facility] [phone].
--- NOTE | 2020-04-25 17:37 | NUR ---
assessment Patient is a 74 year old female who is not answering her phone. I have called patients emergency contact Chandrika and left a message for her to return my call. Patient is covid positive. waiting salesperson wigs back now. Addendum: 04/25/20 at 1739 by Dawna COMER Amended: Links added.
[2020-04-25] MEDS: REMDESIVIR 100mg in NS 230ml DAILYx4DAYS (NO VENT) IV SCH (18:28)
--- NOTE | 2020-04-25 19:10 | NUR ---
Opening note Assumed care of patient from Day Shift RN. day shift RN has Ruthann currently running IV 150 ml/hr. Patient is AOx3 with moments of confusion and may repeat herself. Patient is aware name, time, place but forgetful. Patient and HOB is at 90 degrees. Patient is sitting in bed drinking her water. Patient is anxious. Patient breathing assessed; RR is 20, even and unlabored, and patient on oxygen w/ 5 liters/min nasal canula. Patient sounds dry and patient has dry blood on nasal canula. Patient put on humidifier and patient now more comfortable. Call light is within reach, patient bed locked in lowest position. No other s/s of distress at this time. Will continue to monitor.
[2020-04-25] MEDS: ALPRAZolam 0.25 MG TAB PO PRN (22:15)
[2020-04-25] MEDS: ATORVASTATIN 20 MG TAB PO SCH (22:16)
[2020-04-25] MEDS: INSULIN LANTUS (GLARGINE) 1 /0.01ml (100units/ml) SC SCH (22:21)
[2020-04-26 04:49] VITALS: BP 108/67
[2020-04-26] MEDS: ACCU-CHEK COMFORT CURVE STRIP VI SCH ×4 (06:39→22:00)
[2020-04-26] MEDS: InsuLIN REG 1unit/0.01ml Soln (100units/ml) SC SCH ×4 (06:39→22:00)
[2020-04-26 09:00] VITALS: BP 127/71
[2020-04-26] MEDS: ZINC SULFATE 220mg CAP or TAB PO SCH (09:45)
[2020-04-26] MEDS: ASPirin 81 mg TAB PO SCH (09:45)
[2020-04-26] MEDS: DexAMETHasone SOD PHOS 10MG/1ML VIAL INJ IV SCH (09:45)
[2020-04-26] MEDS: ASCORBIC ACID 500 MG TAB PO SCH ×2 (09:45→22:01)
[2020-04-26] MEDS: ENOXAPARIN SOD 40 MG/0.4 ML SYRINGE SC SCH (09:45)
[2020-04-26] MEDS: CLOPIDOGREL BISULFATE 75 MG TAB PO SCH (09:45)
[2020-04-26] MEDS: NITROGLYCERIN 0.2MG/HR TOPICAL PATCH TD SCH (09:45)
[2020-04-26] MEDS: LISINOPRIL 10 MG TAB PO SCH (09:46)
[2020-04-26] MEDS: METOPROLOL TARTRATE 25 MG TAB PO SCH ×2 (09:46→22:23)
[2020-04-26] MEDS: CHOLECALCIFEROL (VITD3) 2,000 UNIT CAP PO SCH (09:46)
[2020-04-26] MEDS: levoFLOXacin 500MG 100 ML IV SCH (09:46)
--- NOTE | 2020-04-26 11:59 | NUR ---
re-assessment Patient is a 74 year old female who is confused. Prior to admission patient lived home with family. I have left another message for Chandrika [phone] and I have left a message for patients johnathan Campa [phone]. Waiting for return call back now. Addendum: 04/26/20 at 1203 by Dawna COMER Amended: Links added.
--- NOTE | 2020-04-26 12:51 | NUR ---
Nutrition Followup Notes Pt wt is 49.6 kg Pt is positive for COVID. Pt is with a Pureed Cardiac diet, appetite is good aeb ave 75% PO intake x2 per RN doc. Per RN note, pt is confused and anxious. Est energy needs BW 54 [id number] kcals (25-30 kcals/kgBW), Est protein needs:54-64 gms/day (1.0-1.2gm/kgBW). Will reassess prn LABS: BUN 21 H, ALB 2.7 L GI: Pt had 1 BM on 04/25 per RN doc BS: 17 mod risk. Refer to wound assessment report for further details PES: Altered nutrition related lab values rt current chronic medical condition aeb elev BUN hypocalcemia, mod hypoalb Comments Will continue to monitor PO status, skin status, pertinent labs and weight trends. Will f/u in 3-5 days 1) consider CCHO 45 gm along with current diet as pt with hx of DM 2) refer to CDE on DC 3) consider Glucerna 1 carton bid as PO is low 4) continue assistance with meals 5) continue current plan fo care
[2020-04-26 13:00] VITALS: BP 128/78
[2020-04-26 17:00] VITALS: BP 121/68
--- NOTE | 2020-04-26 19:35 | NUR ---
Opening Shift Note Assumed care of patient, awake and alert. No S/S of distress/SOB or pain. Instructed on POC and to call for assist PRN, will continue to monitor for changes Q1hr and PRN.Bed in low position and call light within reach. fall precautions in place and bed alarm on
[2020-04-26 22:00] VITALS: BP 96/66
[2020-04-26] MEDS: INSULIN LANTUS (GLARGINE) 1 /0.01ml (100units/ml) SC SCH (22:00)
[2020-04-26] MEDS: ATORVASTATIN 20 MG TAB PO SCH (22:01)
[2020-04-26] MEDS: ALPRAZolam 0.25 MG TAB PO PRN (22:01)
--- NOTE | 2020-04-26 22:23 | NUR ---
Family Abby fuentesece called. Password Verified. Abby provided telephone number which is . All questions and concerns answered. Call transferred to room as patient requested.
--- NOTE | 2020-04-27 04:59 | NUR ---
BM patient requested bedpan. Patient placed on bedpan. Patient had form brown stool.
[2020-04-27 05:00] VITALS: BP 122/75
--- NOTE | 2020-04-27 06:00 | NUR ---
Oxygen Titration Oxygen titrated down to 3l nasal cannula. Patient tolerating well. Oxygen saturation 95%. Denies sob distress or pain.
[2020-04-27] MEDS: InsuLIN REG 1unit/0.01ml Soln (100units/ml) SC SCH ×4 (06:29→21:58)
[2020-04-27] MEDS: ACCU-CHEK COMFORT CURVE STRIP VI SCH ×4 (06:29→21:59)
--- NOTE | 2020-04-27 07:10 | NUR ---
Report given to dayshift rn patient denies sob distress or pain. Patient oxygen saturation 92% via 8l Oxymizer
[2020-04-27 08:05] LABS: Basophils # (auto) 0 10 ^3/uL (0-0.2); Basophils % (auto) 0.1 % (0.0-2.0); Eosinophils # (auto) 0 10 ^3/uL (0-0.8); Eosinophils % (auto) 0.3 % (0.0-7.0); Hematocrit 36.6 % (36.0-46.0); Hemoglobin 11.6 g/dL (12.2-16.2); Lymphocytes % (auto) 18.1 % (10.0-50.0); Mean Corpuscular Hemoglobin 28.7 pg (28.0-32.0); Mean Corpuscular Hgb Conc. 31.8 g/dL (32.0-36.0); Mean Corpuscular Volume 90.1 fL (80.0-100.0); Monocytes # (auto) 1.2 10 ^3/uL (0-1.3); Monocytes % (auto) 11.3 % (0.0-12.0); Neutrophils # (auto) 7.6 10 ^3/uL (1.6-8.6); Neutrophils % (auto) 70.2 % (37.0-80.0); Nucleated Red Blood Cells % 0.1 %; Platelet Count (auto) 335 10^3/uL (140-450); Red Blood Cells 4.06 10^6/uL (4.0-5.20); Red Cell Distribution Width 15.5 % (11.8-14.3); White Blood Cell 10.8 10^3/uL (4.4-10.8)
[2020-04-27 08:17] LABS: Albumin 2.9 g/dL (3.4-5.0); Potassium 3.9 mmol/L (3.5-5.1)
--- NOTE | 2020-04-27 08:19 | NUR ---
Opening Shift Note Assumed care of patient, awake and alert. No S/S of distress/SOB or pain. Instructed on POC and to call for assist PRN, will continue to monitor for changes Q1hr and PRN.
[2020-04-27 08:21] LABS: BUN/Creatinine Ratio 28.8; Bilirubin, Total 0.9 mg/dL (0.2-1.0); Total Protein 7.3 g/dL (6.4-8.2)
[2020-04-27 09:00] VITALS: BP 112/72
[2020-04-27] MEDS: ASCORBIC ACID 500 MG TAB PO SCH ×2 (10:00→21:48)
[2020-04-27] MEDS: DexAMETHasone SOD PHOS 10MG/1ML VIAL INJ IV SCH (10:16)
[2020-04-27] MEDS: NITROGLYCERIN 0.2MG/HR TOPICAL PATCH TD SCH (10:17)
[2020-04-27] MEDS: ENOXAPARIN SOD 40 MG/0.4 ML SYRINGE SC SCH (10:18)
[2020-04-27] MEDS: levoFLOXacin 500MG 100 ML IV SCH (10:18)
[2020-04-27] MEDS: LISINOPRIL 10 MG TAB PO SCH (10:18)
[2020-04-27] MEDS: ASPirin 81 mg TAB PO SCH (10:18)
[2020-04-27] MEDS: ZINC SULFATE 220mg CAP or TAB PO SCH (10:19)
[2020-04-27] MEDS: CLOPIDOGREL BISULFATE 75 MG TAB PO SCH (10:19)
[2020-04-27] MEDS: CHOLECALCIFEROL (VITD3) 2,000 UNIT CAP PO SCH (10:19)
[2020-04-27] MEDS: METOPROLOL TARTRATE 25 MG TAB PO SCH ×2 (10:21→21:48)
[2020-04-27] MEDS ORDERED: ASPI81CH43 PO (12:11)
[2020-04-27] MEDS ORDERED: ATOR20TA50 PO (12:11)
[2020-04-27] MEDS ORDERED: ACE325T PO (12:11)
[2020-04-27] MEDS ORDERED: CHOL1CAP47 PO (12:11)
[2020-04-27] MEDS ORDERED: DEX4T PO (12:11)
[2020-04-27] MEDS ORDERED: FAMO-12 PO (12:11)
[2020-04-27] MEDS ORDERED: ASCO500T11 PO (12:11)
[2020-04-27] MEDS ORDERED: MET25T PO (12:11)
[2020-04-27 13:00] VITALS: BP 106/68
--- NOTE | 2020-04-27 13:46 | NUR ---
Faxed clinical packet to [employer] [phone] for Home O2 at 4l and Safety eval
--- NOTE | 2020-04-27 15:16 | NUR ---
CONTACT INFORMATION FOR PATIENTS SISTER GAURAV [phone] Addendum: 04/27/20 at 1918 by Bel Reyes RN correct number [phone]
[2020-04-27] MEDS: ALPRAZolam 0.25 MG TAB PO PRN (16:15)
--- NOTE | 2020-04-27 16:51 | NUR ---
Spoke with Shae PAYNE for [employer] [phone] and stated that the O2 will be delivered to the hospital [facility] [employer] [phone] Called and made nurse aware.
[2020-04-27 17:00] VITALS: BP 106/62
--- NOTE | 2020-04-27 19:25 | NUR ---
Opening Shift Note Assumed care of patient, awake and alert. No S/S of distress/SOB or pain. 93% on 3l nasal cannula. Instructed on POC and to call for assist PRN, will continue to monitor for changes Q1hr and PRN. Bed in low position and call light within reach.
[2020-04-27] MEDS: ATORVASTATIN 20 MG TAB PO SCH (21:47)
[2020-04-27] MEDS: INSULIN LANTUS (GLARGINE) 1 /0.01ml (100units/ml) SC SCH (21:59)
[2020-04-27 22:00] VITALS: BP 121/63
--- NOTE | 2020-04-27 23:00 | NUR ---
COVID SWAB Covid swab walked down to lab by yoanna PUGA
--- NOTE | 2020-04-28 00:35 | NUR ---
Patient educated on how to use Incentive Spirometer patient verbalized understanding
[2020-04-28] MEDS: ALPRAZolam 0.25 MG TAB PO PRN (00:36)
[2020-04-28 06:00] VITALS: BP 104/61
[2020-04-28 06:22] LABS: Basophils # (auto) 0 10 ^3/uL (0-0.2); Basophils % (auto) 0.1 % (0.0-2.0); Eosinophils # (auto) 0 10 ^3/uL (0-0.8); Eosinophils % (auto) 0.2 % (0.0-7.0); Hematocrit 34.7 % (36.0-46.0); Hemoglobin 11.2 g/dL (12.2-16.2); Lymphocytes % (auto) 19.3 % (10.0-50.0); Mean Corpuscular Hemoglobin 28.9 pg (28.0-32.0); Mean Corpuscular Hgb Conc. 32.2 g/dL (32.0-36.0); Mean Corpuscular Volume 89.7 fL (80.0-100.0); Monocytes # (auto) 1.2 10 ^3/uL (0-1.3); Monocytes % (auto) 11.2 % (0.0-12.0); Neutrophils # (auto) 7.3 10 ^3/uL (1.6-8.6); Neutrophils % (auto) 69.2 % (37.0-80.0); Platelet Count (auto) 311 10^3/uL (140-450); Red Blood Cells 3.87 10^6/uL (4.0-5.20); Red Cell Distribution Width 15.1 % (11.8-14.3); White Blood Cell 10.6 10^3/uL (4.4-10.8)
[2020-04-28 06:44] LABS: Albumin 2.8 g/dL (3.4-5.0); Calcium 9.1 mg/dL (8.5-10.1); Potassium 4.3 mmol/L (3.5-5.1)
[2020-04-28 06:50] LABS: BUN/Creatinine Ratio 33.3; Bilirubin, Total 0.8 mg/dL (0.2-1.0)
[2020-04-28] MEDS: InsuLIN REG 1unit/0.01ml Soln (100units/ml) SC SCH ×4 (06:57→22:52)
[2020-04-28] MEDS: ACCU-CHEK COMFORT CURVE STRIP VI SCH ×4 (06:57→22:29)
--- NOTE | 2020-04-28 07:20 | NUR ---
Report given to dayshift rn patient denies sob distress or pain
[2020-04-28] MEDS: ASPirin 81 mg TAB PO SCH (10:38)
[2020-04-28] MEDS: ZINC SULFATE 220mg CAP or TAB PO SCH (10:38)
[2020-04-28] MEDS: levoFLOXacin 500MG 100 ML IV SCH (10:38)
[2020-04-28] MEDS: DexAMETHasone SOD PHOS 10MG/1ML VIAL INJ IV SCH (10:38)
[2020-04-28] MEDS: METOPROLOL TARTRATE 25 MG TAB PO SCH ×2 (10:39→22:11)
[2020-04-28] MEDS: ASCORBIC ACID 500 MG TAB PO SCH ×2 (10:39→22:10)
[2020-04-28] MEDS: CLOPIDOGREL BISULFATE 75 MG TAB PO SCH (10:39)
[2020-04-28] MEDS: CHOLECALCIFEROL (VITD3) 2,000 UNIT CAP PO SCH (10:40)
[2020-04-28] MEDS: ENOXAPARIN SOD 40 MG/0.4 ML SYRINGE SC SCH (10:40)
[2020-04-28] MEDS: NITROGLYCERIN 0.2MG/HR TOPICAL PATCH TD SCH (10:41)
[2020-04-28] MEDS: LISINOPRIL 10 MG TAB PO SCH (10:42)
--- NOTE | 2020-04-28 11:33 | NUR ---
patient states she wont be eating lunch shes too full, and feels nauseated, holding insulin.
[2020-04-28 13:00] VITALS: BP 101/52
[2020-04-28 16:46] VITALS: BP 93/48
--- NOTE | 2020-04-28 19:20 | NUR ---
Opening Shift Note Received report from kishore Stewart RN. Assumed care of patient, awake and alert. No S/S of distress/SOB or pain. On 95% on 3LNC nasal cannula. Instructed on POC and to call for assist PRN, will continue to monitor for changes Q1hr and PRN. Bed in low position and call light within reach. Bed placed in lowest position, bed alarm turned on and call light within reach.
[2020-04-28] MEDS: ATORVASTATIN 20 MG TAB PO SCH (22:10)
[2020-04-28 22:33] VITALS: BP 105/56
[2020-04-28] MEDS: INSULIN LANTUS (GLARGINE) 1 /0.01ml (100units/ml) SC SCH (22:53)
[2020-04-29] VITALS (8 sets, daily range): BP systolic 80–101; BP diastolic 35–76
[2020-04-29] MEDS: ALPRAZolam 0.25 MG TAB PO PRN ×2 (02:01→12:19)
--- NOTE | 2020-04-29 02:01 | NUR ---
Patient is restless and states she is having anxiety. Given Xanax as ordered. Will monitor
--- NOTE | 2020-04-29 04:29 | NUR ---
Patient is resting in bed with eyes closed, no distress noted. On 2LNC saturating at 94%. Will monitor.
[2020-04-29] MEDS: ACCU-CHEK COMFORT CURVE STRIP VI SCH ×4 (06:22→21:47)
[2020-04-29] MEDS: InsuLIN REG 1unit/0.01ml Soln (100units/ml) SC SCH ×4 (06:22→21:49)
--- NOTE | 2020-04-29 07:23 | NUR ---
Respiratory note: POX CHECK, PT WAS ASLEEP NO RESP DISTRESS NOTED. HR 80, RR 16, SPO2 99% ON 3L N/C. TITRATED FIO2 TO 1L N/C.
[2020-04-29] MEDS: METOPROLOL TARTRATE 25 MG TAB PO SCH ×2 (10:00→22:44)
[2020-04-29] MEDS: NITROGLYCERIN 0.2MG/HR TOPICAL PATCH TD SCH (10:00)
[2020-04-29] MEDS: LISINOPRIL 10 MG TAB PO SCH (10:00)
[2020-04-29] MEDS: ZINC SULFATE 220mg CAP or TAB PO SCH (10:07)
[2020-04-29] MEDS: ASPirin 81 mg TAB PO SCH (10:07)
[2020-04-29] MEDS: DexAMETHasone SOD PHOS 10MG/1ML VIAL INJ IV SCH (10:07)
[2020-04-29] MEDS: levoFLOXacin 500 MG TAB PO SCH (10:08)
[2020-04-29] MEDS: ENOXAPARIN SOD 40 MG/0.4 ML SYRINGE SC SCH (10:08)
[2020-04-29] MEDS: CHOLECALCIFEROL (VITD3) 2,000 UNIT CAP PO SCH (10:08)
[2020-04-29] MEDS: ASCORBIC ACID 500 MG TAB PO SCH ×2 (10:08→22:44)
[2020-04-29] MEDS: CLOPIDOGREL BISULFATE 75 MG TAB PO SCH (10:08)
--- NOTE | 2020-04-29 12:15 | NUR ---
patient verbalized anxiety, when asked why she thought she was anxious she said because of the virus. I explained to patient that she was doing well, she is currently stable and on minimal oxygen. I told patient to try to take slow deep breaths. She asked for her anxiety medication as well.
[2020-04-29] MEDS: ACETAMINOPHEN 325 MG TAB PO PRN (12:26)
--- NOTE | 2020-04-29 13:30 | NUR ---
patient assisted to sit up at bedside. Patient tolerated for short period of time.
[2020-04-29 14:08] LABS: BUN/Creatinine Ratio 29.9; Basophils # (auto) 0 10 ^3/uL (0-0.2); Basophils % (auto) 0.3 % (0.0-2.0); Calcium 8.6 mg/dL (8.5-10.1); Eosinophils # (auto) 0.2 10 ^3/uL (0-0.8); Eosinophils % (auto) 1.5 % (0.0-7.0); Hematocrit 35.9 % (36.0-46.0); Hemoglobin 11.6 g/dL (12.2-16.2); Lymphocytes # (auto) 1.8 10 ^3/uL (0.4-5.4); Lymphocytes % (auto) 17.6 % (10.0-50.0); Mean Corpuscular Hemoglobin 29.2 pg (28.0-32.0); Mean Corpuscular Hgb Conc. 32.2 g/dL (32.0-36.0); Mean Corpuscular Volume 90.6 fL (80.0-100.0); Monocytes # (auto) 1.1 10 ^3/uL (0-1.3); Monocytes % (auto) 10.9 % (0.0-12.0); Neutrophils # (auto) 7.1 10 ^3/uL (1.6-8.6); Neutrophils % (auto) 69.7 % (37.0-80.0); Nucleated Red Blood Cells % 0.1 %; Platelet Count (auto) 298 10^3/uL (140-450); Red Blood Cells 3.97 10^6/uL (4.0-5.20); Red Cell Distribution Width 15.4 % (11.8-14.3); White Blood Cell 10.2 10^3/uL (4.4-10.8)
--- NOTE | 2020-04-29 14:17 | NUR ---
Nutrition Followup Notes Pt wt is 51.5 kg Pt is positive for COVID. Pt is with a Pureed Cardiac diet, appetite continues to be good aeb ave 75% PO intake x5 per RN doc. Est energy needs BW 54 [id number] kcals (25-30 kcals/kgBW), Est protein needs:54-64 gms/day (1.0-1.2gm/kgBW). Will reassess prn LABS: GLUC 123 H, ALB 2.8 L GI: Pt had 1 BM on 04/29 per RN doc BS: 19 mod risk. Refer to wound assessment report for further details PES: Altered nutrition related lab values rt current chronic medical condition aeb elev BUN hypocalcemia, mod hypoalb Comments Will continue to monitor PO status, skin status, pertinent labs and weight trends. Will f/u in 3-5 days 1) consider CCHO 45 gm along with current diet as pt with hx of DM 2) refer to CDE on DC 3) consider Glucerna 1 carton bid as PO is low 4) continue assistance with meals 5) continue current plan fo care
[2020-04-29] MEDS: HYDROcodone-ACET 5/325MG TAB PO PRN (15:05)
--- NOTE | 2020-04-29 17:30 | NUR ---
midline DSG changed using sterile technique per protocol, patient tolerated well
--- NOTE | 2020-04-29 19:15 | NUR ---
Opening Shift Note Received report from kishore Stewart RN. Assumed care of patient, awake and alert. Patient is finishing up dinner. Patient consumed about 25% of food. No S/S of distress/SOB or pain. Repositioned patient up in bed. On 93% on 1LNC nasal cannula. Instructed on POC and to call for assist PRN, will continue to monitor for changes Q1hr and PRN. Bed in low position and call light within reach. Bed placed in lowest position, bed alarm turned on and call light within reach.
[2020-04-29] MEDS: INSULIN LANTUS (GLARGINE) 1 /0.01ml (100units/ml) SC SCH (21:47)
[2020-04-29] MEDS: ATORVASTATIN 20 MG TAB PO SCH (22:43)
[2020-04-30 05:00] VITALS: BP 93/65
[2020-04-30] MEDS: ACCU-CHEK COMFORT CURVE STRIP VI SCH ×4 (06:37→21:43)
[2020-04-30] MEDS: InsuLIN REG 1unit/0.01ml Soln (100units/ml) SC SCH ×4 (06:37→21:44)
--- NOTE | 2020-04-30 07:24 | NUR ---
Respiratory note: POX CHECK, PT WAS ASLEEP NO RESP DISTRESS NOTED. HR 76, RR 16, SPO2 100% ON 3L N/C. TITRATED FIO2 TO 1L N/C.
[2020-04-30 08:03] LABS: Basophils # (auto) 0 10 ^3/uL (0-0.2); Basophils % (auto) 0.3 % (0.0-2.0); Eosinophils # (auto) 0.2 10 ^3/uL (0-0.8); Hematocrit 36.5 % (36.0-46.0); Hemoglobin 11.9 g/dL (12.2-16.2); Lymphocytes % (auto) 23.7 % (10.0-50.0); Mean Corpuscular Hemoglobin 29.2 pg (28.0-32.0); Mean Corpuscular Hgb Conc. 32.5 g/dL (32.0-36.0); Mean Corpuscular Volume 89.7 fL (80.0-100.0); Neutrophils # (auto) 5.2 10 ^3/uL (1.6-8.6); Nucleated Red Blood Cells % 0.1 %; Platelet Count (auto) 310 10^3/uL (140-450); Red Blood Cells 4.06 10^6/uL (4.0-5.20); Red Cell Distribution Width 15.5 % (11.8-14.3); White Blood Cell 8.3 10^3/uL (4.4-10.8)
[2020-04-30 08:27] LABS: Calcium 8.9 mg/dL (8.5-10.1); Potassium 4.3 mmol/L (3.5-5.1)
[2020-04-30 08:29] LABS: BUN/Creatinine Ratio 26.6
[2020-04-30 09:00] VITALS: BP 104/62
--- NOTE | 2020-04-30 09:48 | NUR ---
COVID SWAB COLLECTED AND WALKED TO LAB.
[2020-04-30] MEDS: NITROGLYCERIN 0.2MG/HR TOPICAL PATCH TD SCH (10:00)
[2020-04-30] MEDS: LISINOPRIL 10 MG TAB PO SCH (10:00)
[2020-04-30] MEDS: METOPROLOL TARTRATE 25 MG TAB PO SCH ×2 (10:00→21:41)
--- NOTE | 2020-04-30 10:39 | NUR ---
Grey ROUNDING: [facility] ROUNDING AT BEDSIDE. INFORMED OF PATIENT STATUS. RECEIVED NEW ORDERS.
[2020-04-30] MEDS: CHOLECALCIFEROL (VITD3) 2,000 UNIT CAP PO SCH (10:59)
[2020-04-30] MEDS: ASCORBIC ACID 500 MG TAB PO SCH ×2 (10:59→21:41)
[2020-04-30] MEDS: ENOXAPARIN SOD 40 MG/0.4 ML SYRINGE SC SCH (10:59)
[2020-04-30] MEDS: ZINC SULFATE 220mg CAP or TAB PO SCH (11:00)
[2020-04-30] MEDS: CLOPIDOGREL BISULFATE 75 MG TAB PO SCH (11:00)
[2020-04-30] MEDS: levoFLOXacin 500 MG TAB PO SCH (11:00)
[2020-04-30] MEDS: ASPirin 81 mg TAB PO SCH (11:00)
[2020-04-30] MEDS: DexAMETHasone SOD PHOS 10MG/1ML VIAL INJ IV SCH (11:01)
[2020-04-30] MEDS: SODIUM CHLORIDE 0.9% 1,000 ML IV SCH (11:01)
[2020-04-30 13:10] VITALS: BP 93/62
--- NOTE | 2020-04-30 14:41 | NUR ---
PAGED CASE MANAGEMENT FOR TRANSFER TO SNF.
--- NOTE | 2020-04-30 14:58 | NUR ---
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 I called [facility] Operator Mary [phone], she is working on a bed at [facility] for this member, faxed her today's rapid COVID test result as requested.
--- NOTE | 2020-04-30 16:22 | NUR ---
SPOKE TO LUCILLE FROM CASE MANAGEMENT WHO STATED SHE HAS SPOKE TO [facility] AND THEY ARE TILL WORKING ON A BED.
--- NOTE | 2020-04-30 16:25 | NUR ---
I called [facility] Filterer Mary ([phone]), she said she is still working on a bed for this patient at [facility]-she will call nurse's station with arrangements/transportation when the bed is available-I relayed this information to nurse Rivas.
[2020-04-30 17:00] VITALS: BP 96/63
--- NOTE | 2020-04-30 19:15 | NUR ---
Opening Shift Note Received report from kishore Stewart RN. Assumed care of patient, awake and alert. Patient is finishing up dinner. Patient consumed about 75% of food. No S/S of distress/SOB or pain. Repositioned patient up in bed. On 93% on 1LNC nasal cannula. Instructed on POC and to call for assist PRN, will continue to monitor for changes Q1hr and PRN. Bed in low position and call light within reach. Bed placed in lowest position, bed alarm turned on and call light within reach.
[2020-04-30] MEDS: ATORVASTATIN 20 MG TAB PO SCH (21:41)
[2020-04-30] MEDS: INSULIN LANTUS (GLARGINE) 1 /0.01ml (100units/ml) SC SCH (21:43)
[2020-04-30 22:00] VITALS: BP 122/69
--- NOTE | 2020-05-01 04:00 | NUR ---
Assisted patient with the bedpan. Patient had a bowel movement, soft and brown. Tessie care done and repositioned patient to right side.
[2020-05-01 05:00] VITALS: BP 118/79
[2020-05-01] MEDS: ACCU-CHEK COMFORT CURVE STRIP VI SCH ×3 (05:55→17:00)
[2020-05-01] MEDS: InsuLIN REG 1unit/0.01ml Soln (100units/ml) SC SCH ×3 (05:56→17:54)
--- NOTE | 2020-05-01 07:09 | NUR ---
Patient is alert and oriented, saturating at 94% on 1 LNC, No distress noted an patient denies pain.
--- NOTE | 2020-05-01 07:26 | NUR ---
Respiratory note: POX CHECK, PT WAS AWAKE NO RESP DISTRESS NOTED. HR 62, RR 16, SPO2 100% ON ROOM AIR.
[2020-05-01 08:15] LABS: Basophils # (auto) 0 10 ^3/uL (0-0.2); Basophils % (auto) 0.1 % (0.0-2.0); Eosinophils # (auto) 0 10 ^3/uL (0-0.8); Eosinophils % (auto) 0.2 % (0.0-7.0); Hematocrit 34.7 % (36.0-46.0); Hemoglobin 11.3 g/dL (12.2-16.2); Lymphocytes # (auto) 1.7 10 ^3/uL (0.4-5.4); Lymphocytes % (auto) 21.5 % (10.0-50.0); Mean Corpuscular Hemoglobin 29.4 pg (28.0-32.0); Mean Corpuscular Hgb Conc. 32.4 g/dL (32.0-36.0); Mean Corpuscular Volume 90.6 fL (80.0-100.0); Monocytes # (auto) 0.9 10 ^3/uL (0-1.3); Monocytes % (auto) 11.5 % (0.0-12.0); Neutrophils # (auto) 5.4 10 ^3/uL (1.6-8.6); Neutrophils % (auto) 66.7 % (37.0-80.0); Nucleated Red Blood Cells % 0.1 %; Platelet Count (auto) 311 10^3/uL (140-450); Red Blood Cells 3.83 10^6/uL (4.0-5.20); Red Cell Distribution Width 15.4 % (11.8-14.3)
[2020-05-01 08:40] LABS: Calcium 8.7 mg/dL (8.5-10.1); Potassium 3.9 mmol/L (3.5-5.1)
[2020-05-01 08:44] LABS: BUN/Creatinine Ratio 19.8
[2020-05-01 09:00] VITALS: BP 104/61
[2020-05-01] MEDS: LISINOPRIL 10 MG TAB PO SCH (10:00)
[2020-05-01] MEDS: NITROGLYCERIN 0.2MG/HR TOPICAL PATCH TD SCH (10:00)
[2020-05-01] MEDS: METOPROLOL TARTRATE 25 MG TAB PO SCH (10:00)
--- NOTE | 2020-05-01 10:06 | NUR ---
SPOKE TO AND INFORMED OF TRANSFER TO SNF. VERBALIZED UNDERSTANDING.
[2020-05-01] MEDS: SODIUM CHLORIDE 0.9% 1,000 ML IV SCH (10:39)
[2020-05-01] MEDS: DexAMETHasone SOD PHOS 10MG/1ML VIAL INJ IV SCH (10:39)
[2020-05-01] MEDS: ZINC SULFATE 220mg CAP or TAB PO SCH (10:39)
[2020-05-01] MEDS: ASPirin 81 mg TAB PO SCH (10:39)
[2020-05-01] MEDS: levoFLOXacin 500 MG TAB PO SCH (10:40)
[2020-05-01] MEDS: CHOLECALCIFEROL (VITD3) 2,000 UNIT CAP PO SCH (10:40)
[2020-05-01] MEDS: ENOXAPARIN SOD 40 MG/0.4 ML SYRINGE SC SCH (10:40)
[2020-05-01] MEDS: ASCORBIC ACID 500 MG TAB PO SCH (10:40)
[2020-05-01] MEDS: CLOPIDOGREL BISULFATE 75 MG TAB PO SCH (10:40)
--- NOTE | 2020-05-01 11:00 | NUR ---
I called [facility] [employer] Cl[employer] Teacher Mary [phone] regarding SNF placement, she is working with [facility]-they should be calling her back shortly with a bed assignment-she will give me a call back.
[2020-05-01 13:00] VITALS: BP 138/60
--- NOTE | 2020-05-01 13:47 | NUR ---
Patient will be going to [facility] room 102 bed 4, Dr. Quita Decker is accepting. Nurse to call report to [phone]. [employer] (phone number [phone] ) to pick patient up at [phone] (arranged by [facility] Manager Mary). I relayed this information to nurse Rivas.
--- NOTE | 2020-05-01 14:52 | NUR ---
REGARDING TRANSFER: ATTEMPTED TO CALL FAMILY REGARDING PATIENTS TRANSFER SCHEDULED TODAY FOR [facility] TO [facility] CALLED [phone]/ [phone]/ [phone]. AND GAURAV. LEFT MESSAGES ON ALL NUMBERS. AWAITING CALL BACK.
--- NOTE | 2020-05-01 15:53 | NUR ---
SPOKE WITH JUDD, PATIENTS SISTER. INFORMED OF PATIENTS TRANSFER TO [facility] AT [facility] WITH [facility] [employer]. FAMILY VERBALIZED UNDERSTANDING.
[2020-05-01 17:00] VITALS: BP 133/74
--- NOTE | 2020-05-01 17:11 | NUR ---
PER Grey HIGHTOWER TO LEAVE MORALES CATHETER IN.
--- NOTE | 2020-05-01 18:15 | NUR ---
ATTEMPTING TO CALL REPORT. NO ANSWER.
--- NOTE | 2020-05-01 18:41 | NUR ---
[facility] NO [facility].
--- NOTE | 2020-05-01 18:53 | NUR ---
[facility] NO [facility].
--- NOTE | 2020-05-01 18:56 | NUR ---
INFORMED CHARGE NURSE DEJUAN OF ATTEMPTS TO CALL REPORT WITH NO ANSWER FROM [facility].
--- NOTE | 2020-05-01 19:18 | NUR ---
[facility] NO [facility].
--- NOTE | 2020-05-01 19:19 | NUR ---
PATIENT DISCHARGED: PATIENT PICKED UP BY [facility]. PATIENT HAS NO S/S OF DISTRESS AT THIS TIME. PATIENT DISCHARGED WITH OXYGEN TANK DELIVERED FROM [facility]. PATIENT ALSO TAKEN WITH ALL BELONGINGS INCLUDING DENTURES AND CELLPHONE AND POM. FAMILY AWARE OF DISCHARGE. TEACHING PROVIDED TO PATIENT AND INSTRUCTED ON ALL NEW MEDICATIONS. PATIENT VERBALIZED UNDERSTANDING. NO ANSWER FROM [facility]. INFORMED NOC EDD MCINTYRE.
== END 2020-05-01 19:18 | disposition short-term general hospital (02) | DRG 177 ==
LOC: ER 10:57 → EDBD 10:57 → EDUNIT# 10:57 → TELE 10:58 → TELE-EAST 22:10 → ICU WEST 04-21 15:32 → EAST 04-25 12:24 → TELE-EAST 04-25 16:05
PROVIDERS: ADMIT Internal Medicine; ATTEND Internal Medicine
PROC: 5A09357 Assistance with Respiratory Ventilation, Less than 24 Consecutive Hours, Continuous Positive Airway Pressure (ICD-10-PCS; 2020-04-20)
PROC: XW033E5 Introduction of Remdesivir Anti-infective into Peripheral Vein, Percutaneous Approach, New Technology Group 5 (ICD-10-PCS; principal; 2020-04-24)
PROC: XW13325 Transfusion of Convalescent Plasma (Nonautologous) into Peripheral Vein, Percutaneous Approach, New Technology Group 5 (ICD-10-PCS; 2020-04-24)
DX: U07.1 COVID-19 (principal); J12.89 Other viral pneumonia; I21.4 Non-ST elevation (NSTEMI) myocardial infarction; J96.01 Acute respiratory failure with hypoxia; J44.1 Chronic obstructive pulmonary disease with (acute) exacerbation; E07.9 Disorder of thyroid, unspecified; M10.9 Gout, unspecified; E11.9 Type 2 diabetes mellitus without complications; I10 Essential (primary) hypertension; E87.6 Hypokalemia; M19.90 Unspecified osteoarthritis, unspecified site; J44.9 Chronic obstructive pulmonary disease, unspecified; Z88.0 Allergy status to penicillin; Z79.899 Other long term (current) drug therapy
CPT/HCPCS: 36415; 36600; 71045; 71275; 80048; 80053; 81001; 82728; 82805; 82962; 83605; 83735; 83880; 84132; 84484; 85007; 85025; 85027; 85379; 85610; 85730; 86141; 86850; 86900; 86901; 87040; 87070; 87077; 87186; 87205; 87278; 87426; 93005; 93306; 93970; 93971; 94660; 96365; 96368; 96375; 97110; 97116; 97163; 97530; G0378; J0696; J1100; J1815; J1956; J2405

== ENCOUNTER 2020-05-01 20:43 | Emergency (ER) | payer OTHER ==
[~2020-05-01] VITALS: Ht 152.4 cm; Wt 59.0 kg
[~2020-05-01 20:43] MED LIST: ACE325T PO; ALLO100T PO; ASCO500T11 PO; ASPI81CH43 PO; ATOR20TA50 PO; CHOL1CAP47 PO; CYAN-17 PO; DEX4T PO; FAMO-12 PO; LISI-646 PO; LOVA40TA72 PO; MET25T PO; METF-929 PO; PANT40TA2 PO
[2020-05-02] MEDS ORDERED: ALPRAZolam 0.5 MG TAB PO ONE (00:30)
[2020-05-02 07:00] VITALS: BP 148/89
== END 2020-05-02 07:50 | disposition home or self-care (01) ==
LOC: EDBD 20:43 → ER 20:45
DX: I21.4 Non-ST elevation (NSTEMI) myocardial infarction (principal); E11.9 Type 2 diabetes mellitus without complications; I10 Essential (primary) hypertension; F41.9 Anxiety disorder, unspecified; Z79.899 Other long term (current) drug therapy; Z20.828 Contact with and (suspected) exposure to other viral communicable diseases